=== PATIENT | male | born 1990 | race Caucasian/White ===

== ENCOUNTER 2018-12-20 14:10 | Emergency (ER) | payer SELFPAY | END 2018-12-20 17:23 | disposition home or self-care (01) | LOC: ED 14:10 | DX: M25.512 Pain in left shoulder (principal); V89.2XXA Person injured in unspecified motor-vehicle accident, traffic, initial encounter | CPT/HCPCS: 70450; 71260; 72125; 74177; 80053; 82150; 82550; 83690; 85025; 86850; 86900; 86901; 90471; 90715; 96374; 99284-25; G0480; J1885 ==